=== PATIENT | female | born 1990 | race Caucasian/White ===

== ENCOUNTER → 2020-01-08 | Outpatient (REF) | payer OTHER, SELFPAY | LOC: M LAB REF 10:50 | PROVIDERS: ATTEND Dermatology | DX: D17.9 Benign lipomatous neoplasm, unspecified (principal) ==

== ENCOUNTER → 2021-06-11 | Outpatient (REF) | payer OTHER | LOC: M LAB REF 09:14 | PROVIDERS: ATTEND Nurse Practitioner Family | DX: D22.61 Melanocytic nevi of right upper limb, including shoulder (principal) | CPT/HCPCS: 11102; 88305; G0463 ==

== ENCOUNTER → 2022-06-16 | Outpatient (REF) | payer OTHER | LOC: M SFHCDERM 15:55 | PROVIDERS: ATTEND Nurse Practitioner Family | DX: D48.9 Neoplasm of uncertain behavior, unspecified (principal) ==